=== PATIENT | female | born 1985 | race Two or more races ===

== ENCOUNTER 2024-02-06 13:20 | Emergency (ER) | payer OTHER ==
[~2024-02-06] VITALS: Ht 165.1 cm; Wt 91.0 kg
[2024-02-06 14:27] LABS: Basophils # (auto) 0 10 ^3/uL (0-0.2); Basophils % (auto) 0.4 % (0.0-2.0); Eosinophils # (auto) 0.1 10 ^3/uL (0-0.8); Hemoglobin 14.3 g/dL (12.2-16.2); Lymphocytes # (auto) 1.1 10 ^3/uL (0.4-5.4); Lymphocytes % (auto) 11.7 % (10.0-50.0); Mean Corpuscular Hemoglobin 30.1 pg (28.0-32.0); Mean Corpuscular Hgb Conc. 33.1 g/dL (32.0-36.0); Mean Corpuscular Volume 90.7 fL (80.0-100.0); Monocytes # (auto) 0.6 10 ^3/uL (0-1.3); Monocytes % (auto) 6.2 % (0.0-12.0); Neutrophils # (auto) 7.5 10 ^3/uL (1.6-8.6); Neutrophils % (auto) 80.7 % (37.0-80.0); Nucleated Red Blood Cells % 0.1 %; Red Blood Cells 4.75 10^6/uL (4.0-5.20); Red Cell Distribution Width 13.2 % (11.8-14.3); White Blood Cell 9.3 10^3/uL (4.4-10.8)
[2024-02-06 14:43] LABS: Alanine Aminotransferase 148 U/L (7-40); Albumin 4.5 g/dL (3.2-4.8); Alkaline Phosphatase 87 U/L (46-116); Anion Gap 10 (5-15); Aspartate Aminotransferase 125 U/L (13-40); Bilirubin, Total 0.5 mg/dL (0.2-1.0); Blood Urea Nitrogen 12 mg/dL (9-23); Calcium 9.8 mg/dL (8.5-10.1); Carbon Dioxide 24 mmol/L (20-30); Chloride 105 mmol/L (98-107); Glucose 171 mg/dL (74-106); INR 1.02 (0.9-1.15); Partial Thromboplastin Time 24.2 SEC (24.5-34.5); Potassium 4.1 mmol/L (3.5-5.1); Prothrombin Time 10.8 sec (9.3-11.8); Sodium 139 mmol/L (136-145); Total Protein 8.4 g/dL (5.7-8.2)
[2024-02-06] MEDS: SODIUM CHLORIDE 0.9% 1,000 ML IV ONE (17:19)
[2024-02-06] MEDS: SODIUM CHLORIDE 0.9% 2,000 ML IV ONE (17:19)
[2024-02-06] MEDS ORDERED: HYDR-4798 PO (17:23)
[2024-02-06] MEDS ORDERED: LEVO500T91 PO (17:23)
[2024-02-06 17:57] VITALS: BP 153/87; PULSE 86; RESP 17; TEMP 99; O2SAT 95
== END 2024-02-06 19:04 | disposition home or self-care (01) ==
LOC: ER 13:20 → EDBD 13:20 → ER 19:04
DX: N13.2 Hydronephrosis with renal and ureteral calculous obstruction (principal); R10.2 Pelvic and perineal pain; R16.0 Hepatomegaly, not elsewhere classified; R79.89 Other specified abnormal findings of blood chemistry; Z79.01 Long term (current) use of anticoagulants
CPT/HCPCS: 36415; 71045; 74176; 80053; 84702; 85025; 85610; 85730; 96360; 96361; 99284; J7030